=== PATIENT | female | born 1955 | race Caucasian/White ===

== ENCOUNTER 2023-02-12 09:24 | Outpatient (CLI) | payer BC, MEDICARE ==
[2023-02-12 12:07] LABS: Hematocrit 39.4 % (34.9-44.5); Hemoglobin 13.1 g/dL (12.0-15.5)
[2023-02-12 12:22] LABS: Anion Gap 12 mmol/L (10-20); BUN (Urea Nitrogen) 16 mg/dL (9.8-20.1); Calc. Creatinine Clearance 0 mL/min (70-130); Calcium 10.2 mg/dL (7.8-10.44); Carbon Dioxide 31 mmol/L (23-31); Chloride 105 mmol/L (98-107); Estimated GFR 96; Glucose 134 mg/dL (80-115); Sodium 144 mmol/L (136-145)
== END 2023-02-12 09:25 | disposition home or self-care (01) ==
LOC: CSHLAB 09:24
PROVIDERS: ATTEND Otolaryngology
DX: Z01.818 Encounter for other preprocedural examination (principal); J38.6 Stenosis of larynx
CPT/HCPCS: 80048; 85014; 85018; 93005; 93010